=== PATIENT | female | born 1990 | race American Indian/Alaskan Native ===

== ENCOUNTER 2018-05-22 23:26 | Emergency (ER) | payer MEDICARE, OTHER ==
[2018-05-23] MEDS ORDERED: MORPHINE IM ONE (02:30)
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
[2018-05-23 04:37] VITALS: BP 1424/76
== END 2018-05-23 04:00 | disposition home or self-care (01) ==
LOC: ED 23:26
DX: M79.604 Pain in right leg (principal); I10 Essential (primary) hypertension; J45.909 Unspecified asthma, uncomplicated; E66.01 Morbid (severe) obesity due to excess calories; Z68.43 Body mass index [BMI] 50.0-59.9, adult; Z86.718 Personal history of other venous thrombosis and embolism; Z79.899 Other long term (current) drug therapy; V89.2XXA Person injured in unspecified motor-vehicle accident, traffic, initial encounter; Y93.89 Activity, other specified; Y99.8 Other external cause status; Y92.410 Unspecified street and highway as the place of occurrence of the external cause
CPT/HCPCS: 96372; 99282; J2270

== ENCOUNTER 2018-05-24 13:43 | Outpatient (CLI) | payer SELFPAY ==
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
== END 2018-05-24 13:44 | disposition home or self-care (01) ==
LOC: VAS 13:43
PROVIDERS: ATTEND Emergency Medicine
DX: M79.604 Pain in right leg (principal); M79.89 Other specified soft tissue disorders

== ENCOUNTER 2021-07-16 11:18 | Emergency (ER) | payer MEDICARE ==
[2021-07-16 11:21] VITALS: BP 142/92
== END 2021-07-16 12:00 | disposition left against medical advice (07) ==
LOC: ED 11:18
DX: R51.9 Headache, unspecified (principal); Z53.21 Procedure and treatment not carried out due to patient leaving prior to being seen by health care provider